=== PATIENT | male | born 1975 ===

== ENCOUNTER 2018-05-21 15:52 | Emergency (ER) | payer OTHER ==
[2018-05-21 16:08] VITALS: BP 149/92; PULSE 84; RESP 18; TEMP 98.8; O2SAT 99
--- NOTE | 2018-05-21 17:40 | ED PDOC ---
HPI: Skin/Bite Injury Time Seen by Provider: 05/21/18 16:51 Chief Complaint (Nursing): Abnormal Skin Integrity Chief Complaint (Provider): Abnormal Skin Integrity History Per: Patient History/Exam Limitations: no limitations Onset/Duration Of Symptoms: Days (x1 week) Additional Complaint(s): 42 y/o male with no significant past medical history presents to ED complaining of an abscess to his right upper back, onset x1 week ago. Patient reports he was seen at urgent care and was given prescription for Keflex on x3 days ago. Patient reports tx has no relieved symptoms. He also takes Motrin 400 mg. Pt states he has seen some drainage on tshirt. No fever/chills Past Medical History Reviewed: Historical Data, Nursing Documentation, Vital Signs Vital Signs: Last Vital Signs Temp 98.8 F 05/21/18 16:06 Pulse 84 05/21/18 16:06 Resp 18 05/21/18 16:06 BP 149/92 H 05/21/18 16:06 Pulse Ox 99 05/21/18 16:06 - Medical History PMH: No Chronic Diseases - Surgical History Surgical History: No Surg Hx - Family History Family History: States: Unknown Family Hx - Home Medications Home Medications: Ambulatory Orders Medication Instructions Recorded Clindamycin [Cleocin] 300 mg PO QID #40 cap 05/21/18 Naproxen [Naprosyn] 500 mg PO BID PRN #20 tablet 05/21/18 - Allergies Allergies/Adverse Reactions: Allergies Allergy/AdvReac Type Severity Reaction Status Date / Time No Known Allergies Allergy Verified 05/21/18 16:06 Review of Systems ROS Statement: Except As Marked, All Systems Reviewed And Found Negative Skin: Positive for: Other (Abscess to right upper back) Physical Exam - Reviewed Nursing Documentation Reviewed: Yes Vital Signs Reviewed: Yes - Physical Exam Appears: Positive for: Well, Non-toxic, No Acute Distress Head Exam: Positive for: ATRAUMATIC, NORMOCEPHALIC Skin: Positive for: Normal Color, Warm, DRY Eye Exam: Positive for: Normal appearance Neck: Positive for: Normal Cardiovascular/Chest: Negative for: Bradycardia, Tachycardia Respiratory: Negative for: Accessory Muscle Use, Respiratory Distress Back: Positive for: Other (2 abscesses to right upper back 2 cm and 3 cm. Very localized erythema both abscesses are indurated) Neurologic/Psych: Positive for: Alert, Oriented. Negative for: Motor/Sensory Deficits - ECG O2 Sat by Pulse Oximetry: 99 Pulse Ox Interpretation: Normal Medical Decision Making Medical Decision Making: Time: 17:30 Initial Impression: Abscess Initial Plan: Patient informed to use warm compresses. Discharged with prescription for Clindamycin and Naprosyn. Scribe Attestation: Documented by Thiago Sam, acting as a scribe for Chana Greenfield PA-C. Provider Scribe Attestation: All medical record entries made by the Scribe were at my direction and personally dictated by me. I have reviewed the chart and agree that the record accurately reflects my personal performance of the history, physical exam, medical decision making, and the department course for this patient. I have also personally directed, reviewed, and agree with the discharge instructions and di sposition. Disposition - Clinical Impression Clinical Impression: Abscess - Disposition Disposition: Routine/Home Disposition Time: 17:35 Condition: GOOD Prescriptions: Clindamycin [Cleocin] 300 mg PO QID #40 cap Naproxen [Naprosyn] 500 mg PO BID PRN #20 tablet PRN Reason: Pain Instructions: Skin Abscess Forms: [employer] (Gambian)
== END 2018-05-21 17:53 | disposition home or self-care (01) ==
LOC: H.ER 15:52
DX: L02.212 Cutaneous abscess of back [any part, except buttock and flank] (principal)

== ENCOUNTER 2018-09-05 01:15 | Emergency (ER) | payer OTHER ==
[2018-09-05 01:33] VITALS: BMI 28.2
[2018-09-05 01:36] VITALS: BP 184/110; PULSE 92; RESP 18; TEMP 98.4; O2SAT 99
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
== END 2018-09-05 04:50 | disposition home or self-care (01) ==
LOC: H.ER 01:15
DX: S00.83XA Contusion of other part of head, initial encounter (principal); Y04.2XXA Assault by strike against or bumped into by another person, initial encounter
CPT/HCPCS: 70486; 96372; 99281; J1885